=== PATIENT | male | born 1965 | race Caucasian/White ===

== ENCOUNTER 2020-06-11 06:31 | Day surgery (SDC) | payer OTHER ==
[~2020-06-11] VITALS: Ht 185.4 cm; Wt 96.7 kg
[~2020-06-11 06:31] MED LIST: CLIN150 PO; LEVFLO500 PO; LISI20 PO; LOVA40; OMEP20ER PO; POTA8; PRED AC-MOXI-BRO5 M1; Prinivil10 MG; SULTRIDS PO; VALERIAN150 MG; [UNRECOGNIZED DRUG - OTHER]
== END 2020-06-11 09:44 | disposition home or self-care (01) ==
LOC: ORSCSDS 06:31
PROVIDERS: Internal Medicine Gastroenterology
PROC: 0DBL8ZX Excision of Transverse Colon, Via Natural or Artificial Opening Endoscopic, Diagnostic (ICD-10-PCS; principal; 2020-06-11 08:00)
PROC: 0DBN8ZX Excision of Sigmoid Colon, Via Natural or Artificial Opening Endoscopic, Diagnostic (ICD-10-PCS; principal; 2020-06-11 08:00)
PROC: 0DB98ZX Excision of Duodenum, Via Natural or Artificial Opening Endoscopic, Diagnostic (ICD-10-PCS; principal; 2020-06-11 08:00)
PROC: 0DBE8ZX Excision of Large Intestine, Via Natural or Artificial Opening Endoscopic, Diagnostic (ICD-10-PCS; principal; 2020-06-11 08:00)
PROC: 0DB68ZX Excision of Stomach, Via Natural or Artificial Opening Endoscopic, Diagnostic (ICD-10-PCS; principal; 2020-06-11 08:00)
DX: R19.7 Diarrhea, unspecified (principal); D12.3 Benign neoplasm of transverse colon; K63.5 Polyp of colon; K63.89 Other specified diseases of intestine; R10.13 Epigastric pain; R14.0 Abdominal distension (gaseous); I10 Essential (primary) hypertension; J45.909 Unspecified asthma, uncomplicated; Z87.891 Personal history of nicotine dependence; F17.220 Nicotine dependence, chewing tobacco, uncomplicated; Z79.899 Other long term (current) drug therapy
CPT/HCPCS: 88305; 88342; J0330; J0461; J2405; J2704; J7120

== ENCOUNTER → 2021-12-18 | Outpatient (CLI) | payer OTHER | END | disposition home or self-care (01) | LOC: LAB 11:21 → LAB SHORT 11:21 | DX: K22.10 Ulcer of esophagus without bleeding (principal) | CPT/HCPCS: 87338 ==

== ENCOUNTER 2023-01-01 17:15 | Emergency (ER) | payer OTHER ==
[~2023-01-01] VITALS: Ht 182.9 cm; Wt 96.6 kg
[2023-01-01 17:45] LABS: BASOPHILS ABSOLUTE AUTO 0.04 K/mm3 (0.00-0.23); BASOPHILS PERCENT AUTO 0 % (0-2); EOSINOPHILS ABSOLUTE AUTO 0.04 K/mm3 (0.00-0.68); EOSINOPHILS PERCENT AUTO 0 % (0-6); Hematocrit 45.9 % (37.0-53.0); Hemoglobin 15.8 g/dL (13.5-17.5); IMMATURE GRAN ABSOLUTE AUTO 0.04 K/mm3 (0.00-0.10); IMMATURE GRAN PERCENT AUTO 0 % (0-1); LYMPHOCYTES ABSOLUTE AUTO 0.52 K/mm3 (0.84-5.20); LYMPHOCYTES PERCENT AUTO 5 % (21-46); MONOCYTES ABSOLUTE AUTO 0.41 K/mm3 (0.16-1.47); MONOCYTES PERCENT AUTO 4 % (4-13); Mean Corpuscular HGB 31.5 pg (26.0-34.0); Mean Corpuscular HGB Conc 34.4 g/dL (31.5-36.5); Mean Corpuscular Volume 92 fL (80-100); NEUTROPHILS ABSOLUTE AUTO 8.83 K/mm3 (1.96-9.15); NEUTROPHILS PERCENT AUTO 89 % (41-73); Platelet Count 376 K/mm3 (150-400); RDW Standard Deviation 43.8 fL (35.1-46.3); Red Blood Cell Count 5.01 M/mm3 (4.30-5.90); White Blood Cell Count 9.88 K/mm3 (4.00-11.30)
[2023-01-01 18:04] LABS: Albumin, Blood 4.3 g/dL (3.4-5.0); Albumin/Globulin Ratio 1.2 (0.8-1.8); Bilirubin, Total 0.9 mg/dL (0.1-1.0); Bun/Creatinine Ratio 14.9 (12.0-20.0); Calcium, Blood 9.6 mg/dL (8.5-10.1); Creatinine, Blood 0.94 mg/dL (0.60-1.20); Globulin, Blood 3.6 g/dL (2.2-4.0); Potassium, Blood 4.5 mmol/L (3.5-5.5); Total Protein, Blood 7.9 g/dL (6.4-8.2)
[2023-01-01 19:39] VITALS: BP 135/98
[2023-01-01 19:44] LABS: Source, Urine Clean Catch
[2023-01-01 19:59] LABS: Bilirubin, Urine Neg (Neg); Blood, Urine 1+ (Neg); Glucose Qualitative, Urine Neg (Neg); Ketones, Urine Neg (Neg); Leukocyte Esterase, Urine Neg (Neg); Nitrite, Urine Neg (Neg); Protein, Urine Neg (Neg); Specific Gravity, Urine 1.015 (1.003-1.022); Urobilinogen, Urine NORM (Normal)
[2023-01-01 20:20] LABS: Appearance, Urine Clear (Clear); Color, Urine Yellow (P-Yellow)
[2023-01-01 20:22] LABS: Bacteria Not Seen /hpf; Red Blood Cells, Urine 0-2 /hpf (0-2); Squamous Epithelial Cells Rare /hpf (Few); White Blood Cells, Urine 0-2 /hpf (0-5)
== END 2023-01-01 22:06 | disposition home or self-care (01) ==
LOC: ER 17:15
PROVIDERS: Student in an Organized Health Care Education/Training Program
DX: R13.10 Dysphagia, unspecified (principal); Z88.2 Allergy status to sulfonamides; Z88.1 Allergy status to other antibiotic agents; Z79.899 Other long term (current) drug therapy; Z79.52 Long term (current) use of systemic steroids
CPT/HCPCS: 74018; 80053; 81001; 83690; 85025; J7030

== ENCOUNTER → 2023-01-15 | Outpatient (CLI) | payer OTHER | END | disposition home or self-care (01) | LOC: LAB 15:01 → LAB SHORT 15:01 | DX: R30.0 Dysuria (principal) | CPT/HCPCS: 87086 ==

== ENCOUNTER → 2025-06-28 | Outpatient (CLI) | payer OTHER ==
[2025-06-30 14:35] LABS: PANCREATIC ELASTASE,FECAL 442 ug/g (>=100)
== END ==
LOC: LAB SHORT 14:25 → LAB 14:25
PROVIDERS: Physician Assistant Medical
DX: R14.0 Abdominal distension (gaseous) (principal); R19.5 Other fecal abnormalities
CPT/HCPCS: 82653